=== PATIENT | male | born 1970 | race Hispanic/Latino ===

== ENCOUNTER 2017-12-25 11:18 | Observation (INO) | payer OTHER, BC ==
[2017-12-25] MEDS ORDERED: Tdap Vaccine 0.5 ml Vial (10-64 yrs) IM ONE (12:44)
[2017-12-25] MEDS ORDERED: Lidocaine 2% Inj (20ml) IJ ONE (13:00)
[2017-12-25] MEDS ORDERED: Lidocaine 2% w Epi 1:100,000 Inj IJ ONE (13:02)
[2017-12-25] MEDS ORDERED: Amoxicillin-Clav 875-125 mg Tab PO STA (13:17)
[2017-12-25] MEDS ORDERED: Amoxicillin-Clav 875-125 mg Tab PO ONE (13:50)
--- NOTE | 2017-12-25 13:51 | RAD ---
PROCEDURE: Right Hand Radiographs. HISTORY: 3rd digit distal crush injury/ lac COMPARISON: None. FINDINGS: BONES: No acute fracture. JOINTS: Unremarkable. SOFT TISSUES: Focal soft tissue laceration along the volar aspect a 3rd digit at the level of the distal interphalangeal joint. OTHER FINDINGS: None. IMPRESSION: Distal 3rd digit soft tissue laceration without demonstrated fracture, dislocation or retained radiopaque foreign body.
[2017-12-25] MEDS ORDERED: Sodium Chloride 0.9% 1,000 ML IV STA (14:04)
[2017-12-25] MEDS ORDERED: Morphine 4 MG/ML VIAL IVP PRN (14:35)
--- NOTE | 2017-12-25 14:50 | ED PDOC ---
HPI: General Adult Time Seen by Provider: 12/25/17 12:34 Chief Complaint (Nursing): Abnormal Skin Integrity Chief Complaint (Provider): right hand injury History Per: Patient History/Exam Limitations: no limitations Onset/Duration Of Symptoms: Mins Have you had recent travel within the past 21 days to any of the following countries: [place], [place], [place] or [place]?: No Current Symptoms Are (Timing): Still Present Additional History Per: Patient Additional Complaint(s): 47yo male, with history of diabetes and taking insulin, presents to ED for evaluation of an injury to his dominant right middle finger. Patient states after the injury, a cable under significant tension also caused a strangulation injury to the distal finger. He also reports numbness to the radial side > ulnar side of the right 3rd distal finger and also reports loss of ROM to distal tip with pain along distal half of the finger. Patient is unsure when his last tetanus vaccination was. He denies any other injuries. Patient offers no other medical complaints. Past Medical History Reviewed: Historical Data, Nursing Documentation, Vital Signs Vital Signs: Last Vital Signs Temp 97.4 F L 12/25/17 22:42 Pulse 61 12/25/17 22:42 Resp 18 12/25/17 22:42 BP 126/80 12/25/17 22:42 Pulse Ox 98 12/25/17 22:42 - Medical History PMH: Diabetes - Surgical History Other surgeries: foot surgery - Family History Family History: States: No Known Family Hx - Home Medications Home Medications: Ambulatory Orders Medication Instructions Recorded Insulin Aspart, Recombinant 8 unit SC AC 12/25/17 [Novolog] Insulin Glargine, Recombina 20 unit SC HS 12/25/17 [Lantus] - Allergies Allergies/Adverse Reactions: Allergies Allergy/AdvReac Type Severity Reaction Status Date / Time No Known Allergies Allergy Verified 12/25/17 11:51 Review of Systems ROS Statement: Except As Marked, All Systems Reviewed And Found Negative Musculoskeletal: Positive for: Hand Pain (injury to right 3rd digit) Neurological: Positive for: Numbness (numbness to radial side of distal right 3rd digit) Physical Exam - Reviewed Nursing Documentation Reviewed: Yes Vital Signs Reviewed: Yes - Physical Exam Appears: Positive for: Non-toxic, No Acute Distress Extremity: Positive for: Capillary Refill (< 2 seconds), Other (crush and laceration injury to right distal DIP, deep linear laceration with edema to distal pulp of right 3rd digit.) Neurologic/Psych: Positive for: Alert, Oriented, Motor/Sensory Deficits (loss of sensation to radial side of distal right 3rd digit.) - Laboratory Results Result Diagrams: 12/25/17 14:35 12/25/17 14:35 - ECG O2 Sat by Pulse Oximetry: 99 (RA) Pulse Ox Interpretation: Normal Medical Decision Making Medical Decision Making: Impression: Hand injury Plan: -- XR Right hand -- Motrin 400 mg PO -- Adacel 0.5ml IM Time: 1349 XR Right hand FINDINGS: BONES: No acute fracture. JOINTS: Unremarkable. SOFT TISSUES: Focal soft tissue laceration along the volar aspect a 3rd digit at the level of the distal interphalangeal joint. OTHER FINDINGS: None. IMPRESSION: Distal 3rd digit soft tissue laceration without demonstrated fracture, dislocation or retained radiopaque foreign body. Given numbness and loss of ROM, Dr. Estrella who was in ED consulted. Dr. Estrella recommends operative repair for optimal outcome. Risks and benefits of surgery explained to patient by Dr. Estrella and patient is agreeable with plan for admission. Patient to be admitted under Dr. Ching to [facility]. Pre-op labs ordered. Patient has been NPO since 1300. Scribe Attestation: Documented by Karen Wilks acting as a scribe for Dillon Eldridge DO Provider Attestation: All medical record entries made by the Scribe were at my direction and personally dictated by me. I have reviewed the chart and agree that the record accurately reflects my personal performance of the history, physical exam, medical decision making, and the department course for this patient. I have also personally directed, reviewed, and agree with the discharge instructions and disposition. Disposition - Clinical Impression Clinical Impression: Laceration of finger, complicated, Nerve injury - Patient ED Disposition Is Patient to be Admitted: Yes - Disposition Disposition Time: 13:45 Condition: STABLE - Pt Status Changed To: Hospital Disposition Of: Observation - POA Present On Arrival: Falls Or Trauma
[2017-12-25 14:56] LABS: BASO # 0.1 K/uL (0.0-0.2); EOS # 0.1 K/uL (0.0-0.7); EOS % 1.9 % (0.0-4.0); HEMOGLOBIN 14.4 g/dL (12.0-18.0); LYMPH # 2.2 K/uL (1.0-4.3); LYMPH % 30.4 % (20.0-40.0); MEAN CORPUSCULAR HEMOGLOBIN 29.8 pg (27.0-31.0); MEAN CORPUSCULAR HGB CONC 34.6 g/dL (33.0-37.0); MEAN PLATELET VOLUME 8.7 fl (7.2-11.7); MONO # 0.4 K/uL (0.0-0.8); NEUT # 4.5 K/uL (1.8-7.0); NEUT % 61.7 % (50.0-75.0); NRBC % 0.1 % (0.0-0.0); RBC 4.85 Mil/uL (4.40-5.90); RED CELL DISTRIBUTION WIDTH 12.9 % (11.5-14.5); WHITE BLOOD COUNT 7.3 K/uL (4.8-10.8)
[2017-12-25 14:58] LABS: BLOOD UREA NITROGEN 15 mg/dl (9-20); CALCIUM 9.5 mg/dL (8.4-10.2); GFR AFRICAN-AMERICAN > 60; GFR NON-AFRICAN AMERICAN > 60
[2017-12-25] MEDS ORDERED: Dextrose 5%/0.45% NS 1,000 ML IV SCH (15:00)
[2017-12-25 15:01] LABS: PARTIAL THROMBOPLASTIN TIME 34.1 Seconds (25.6-37.1); PROTHROMBIN TIME 11.6 Seconds (9.8-13.1)
[2017-12-25] MEDS ORDERED: Dextrose 50% SYRINGE Inj (50 ml) IVP ONE (16:51)
[2017-12-25] MEDS ORDERED: Dextrose 50% SYRINGE Inj (50 ml) ONE (16:52)
[2017-12-25] MEDS ORDERED: Insulin Regular 100 units/ml SC SCH (17:00)
--- NOTE | 2017-12-25 17:35 | CP.PCM.HP ---
History of Present Illness - History of Present Illness History of Present Illness: CC: Right 3rd digit injury This is a 47 year old male with a past medical history of diabetes mellitus controlled with insulin, who presents to the ED with the complaint of right 3rd digit pain and numbness/tingling after traumatic accident occurred. The patient stated that the injury occurred with a cable under tension. Upon arrival to the ED, the patient was seen by plastic surgeon Dr. Estrella who is concerned for nerve damage and tendon damage to the digit. The injury is located on the ventral side of the PIP joint of the 3rd digit. The patient denies any medical problems other than chest pain, n/v/d, headache, sob. The patient is to go for surgery tonight. Present on Admission - Present on Admission Any Indicators Present on Admission: No Review of Systems - Review of Systems Review of Systems: A 12 point review of systems was conducted and found to be negative other than what was mentioned in the HPI. Past Patient History - Infectious Disease Hx of Infectious Diseases: None - Past Medical History & Family History Past Medical History?: Yes Pertinent Family History: Father has DM and had a heart attack at age of 78 - Past Social History Smoking Status: Never Smoked - CARDIAC Hx Cardiac Disorders: No - PULMONARY Hx Respiratory Disorders: No - NEUROLOGICAL Hx Neurological Disorder: No - HEENT Hx HEENT Problems: No - RENAL Hx Chronic Kidney Disease: No - ENDOCRINE/METABOLIC Hx Diabetes Mellitus Type 2: Yes - HEMATOLOGICAL/ONCOLOGICAL Hx Blood Disorders: No - INTEGUMENTARY Hx Dermatological Problems: No - MUSCULOSKELETAL/RHEUMATOLOGICAL Hx Musculoskeletal Disorders: No - GASTROINTESTINAL Hx Gastrointestinal Disorders: No - GENITOURINARY/GYNECOLOGICAL Hx Genitourinary Disorders: No - PSYCHIATRIC Hx Psychophysiologic Disorder: No Hx Substance Use: No - SURGICAL HISTORY Hx Surgeries: No - ANESTHESIA Hx Anesthesia: Yes Hx Anesthesia Reactions: No Hx Malignant Hyperthermia: No Meds Allergies/Adverse Reactions: Allergies Allergy/AdvReac Type Severity Reaction Status Date / Time No Known Allergies Allergy Verified 12/25/17 11:51 Physical Exam - Constitutional Appears: Well, Non-toxic - Head Exam Head Exam: ATRAUMATIC, NORMAL INSPECTION, NORMOCEPHALIC - Eye Exam Eye Exam: EOMI, Normal appearance, PERRL - Respiratory Exam Respiratory Exam: Clear to Auscultation Bilateral, NORMAL BREATHING PATTERN - Cardiovascular Exam Cardiovascular Exam: REGULAR RHYTHM, +S1, +S2 - GI/Abdominal Exam GI & Abdominal Exam: Normal Bowel Sounds, Soft. absent: Tenderness - Extremities Exam Extremities exam: Negative for: calf tenderness, normal capillary refill, pedal edema Additional comments: Tenderness and pain to right hand 3rd digit. Laceration to PIP. - Neurological Exam Neurological exam: Alert, CN II-XII Intact, Normal Gait, Oriented x3, Reflexes Normal - Psychiatric Exam Psychiatric exam: Normal Affect, Normal Mood Results - Vital Signs Recent Vital Signs: Last Vital Signs Temp 97.5 F L 12/25/17 11:51 Pulse 80 12/25/17 11:51 Resp 18 12/25/17 11:51 BP 164/84 H 12/25/17 11:51 Pulse Ox 99 12/25/17 15:10 - Labs Result Diagrams: 12/25/17 14:35 12/25/17 14:35 Labs: Laboratory Results - last 24 hr 12/25/17 12/25/17 12/25/17 14:35 14:35 14:35 WBC 7.3 RBC 4.85 Hgb 14.4 Hct 41.7 MCV 86.0 MCH 29.8 MCHC 34.6 RDW 12.9 Plt Count 222 MPV 8.7 Neut % (Auto) 61.7 Lymph % (Auto) 30.4 Sebastian % (Auto) 5.0 Eos % (Auto) 1.9 Baso % (Auto) 1.0 Neut # (Auto) 4.5 Lymph # (Auto) 2.2 Sebastian # (Auto) 0.4 Eos # (Auto) 0.1 Baso # (Auto) 0.1 PT 11.6 INR 1.0 APTT 34.1 Sodium 141 Potassium 4.5 Chloride 100 Carbon Dioxide 28 Anion Gap 18 BUN 15 Creatinine 0.8 Est GFR ( Amer) > 60 Est GFR (Non-Af Amer) > 60 POC Glucose (mg/dL) Random Glucose 101 Calcium 9.5 12/25/17 12/25/17 14:49 16:50 WBC RBC Hgb Hct MCV MCH MCHC RDW Plt Count MPV Neut % (Auto) Lymph % (Auto) Sebastian % (Auto) Eos % (Auto) Baso % (Auto) Neut # (Auto) Lymph # (Auto) Sebastian # (Auto) Eos # (Auto) Baso # (Auto) PT INR APTT Sodium Potassium Chloride Carbon Dioxide Anion Gap BUN Creatinine Est GFR ( Amer) Est GFR (Non-Af Amer) POC Glucose (mg/dL) 83 62 L Random Glucose Calcium Assessment & Plan - Assessment and Plan (Free Text) Plan: ASSESSMENT/PLAN 1) Right hand 3rd digit traumatic injury, likely with nerve/tendon damage - med/surg observation - Consultation with Dr. Estrella, plastic surgery, appreciated - NPO status - IV fluids - pain management with morphine - For OR tonight and possible discharge later tonight. 2) DVT prophylaxis - SCDs
[2017-12-25] MEDS ORDERED: Lidocaine 2% Jelly (5 ml) TOP ONE (18:44)
[2017-12-25] MEDS ORDERED: Lidocaine 1% 5ml Abboject IV ONE (18:44)
[2017-12-25] MEDS ORDERED: Propofol 10 mg/ml Inj (20 ML) ONE ×2 (18:44→19:13)
[2017-12-25] MEDS ORDERED: Midazolam 2 MG/2 ML VIAL ONE (18:44)
[2017-12-25] MEDS ORDERED: Bupivacaine 0.5% Inj(30mL) ONE (18:57)
[2017-12-25] MEDS ORDERED: Lactated Ringer's 1,000 ML IV ONE (19:43)
[2017-12-25] MEDS ORDERED: Lidocaine 1% (10 ml) Inj IV ONE (20:11)
[2017-12-25] MEDS ORDERED: Bupivacaine 0.5% 50 ML IJ ONE (20:11)
--- NOTE | 2017-12-25 20:54 | PCM.SURG1 ---
Surgeon's Initial Post Op Note - Surgeon's Notes Surgeon: Dr. Estrella [employer] Black Trainer: Dr. Villasenor PGY2 Type of Anesthesia: General LMA Pre-Operative Diagnosis: Right middle finger acute ulnar nerve damage Operative Findings: See operative dictation Post-Operative Diagnosis: Right ulnar nerve damage Operation Performed: Right digital exploration with ulnar nerve exploration and repair Specimen/Specimens Removed: none Estimated Blood Loss: EBL {In ML}: 0 Drains Used: No Drains Post-Op Condition: Good Date of Surgery/Procedure: 12/25/17 Time of Surgery/Procedure: 20:54
[2017-12-25] MEDS ORDERED: Oxycodone/Acetaminophen 5/325 mg Tab PO PRN (20:55)
[2017-12-25] MEDS ORDERED: Lactated Ringer's 1,000 ML IV SCH (21:00)
--- NOTE | 2017-12-25 21:31 | CP.PCM.DIS ---
Provider - Provider Date of Admission: 12/25/17 14:12 Attending physician: Khadar Ching DO Primary care physician: Khadar Ching MD Consults: Dr Estrella Plastic Surgeon Time Spent in preparation of Discharge (in minutes): 25 Diagnosis - Discharge Diagnosis (1) Injury of right ulnar nerve Status: Acute (2) Injury of right ulnar nerve at hand level Status: Acute Hospital Course - Lab Results Lab Results: Most Recent Lab Values WBC 7.3 K/uL (4.8-10.8) 12/25/17 14:35 RBC 4.85 Mil/uL (4.40-5.90) 12/25/17 14:35 Hgb 14.4 g/dL (12.0-18.0) 12/25/17 14:35 Hct 41.7 % (35.0-51.0) 12/25/17 14:35 MCV 86.0 fl (80.0-94.0) 12/25/17 14:35 MCH 29.8 pg (27.0-31.0) 12/25/17 14:35 MCHC 34.6 g/dL (33.0-37.0) 12/25/17 14:35 RDW 12.9 % (11.5-14.5) 12/25/17 14:35 Plt Count 222 K/uL (130-400) 12/25/17 14:35 MPV 8.7 fl (7.2-11.7) 12/25/17 14:35 Neut % (Auto) 61.7 % (50.0-75.0) 12/25/17 14:35 Lymph % (Auto) 30.4 % (20.0-40.0) 12/25/17 14:35 [place] % (Auto) 5.0 % (0.0-10.0) 12/25/17 14:35 Eos % (Auto) 1.9 % (0.0-4.0) 12/25/17 14:35 Baso % (Auto) 1.0 % (0.0-2.0) 12/25/17 14:35 Neut # (Auto) 4.5 K/uL (1.8-7.0) 12/25/17 14:35 Lymph # (Auto) 2.2 K/uL (1.0-4.3) 12/25/17 14:35 [place] # (Auto) 0.4 K/uL (0.0-0.8) 12/25/17 14:35 Eos # (Auto) 0.1 K/uL (0.0-0.7) 12/25/17 14:35 Baso # (Auto) 0.1 K/uL (0.0-0.2) 12/25/17 14:35 PT 11.6 Seconds (9.8-13.1) 12/25/17 14:35 INR 1.0 (0.9-1.2) 12/25/17 14:35 APTT 34.1 Seconds (25.6-37.1) 12/25/17 14:35 Sodium 141 mmol/l (132-148) 12/25/17 14:35 Potassium 4.5 MMOL/L (3.6-5.0) 12/25/17 14:35 Chloride 100 mmol/L (98-107) 12/25/17 14:35 Carbon Dioxide 28 mmol/L (22-30) 12/25/17 14:35 Anion Gap 18 (10-20) 12/25/17 14:35 BUN 15 mg/dl (9-20) 12/25/17 14:35 Creatinine 0.8 mg/dl (0.8-1.5) 12/25/17 14:35 Est GFR ( Amer) > 60 12/25/17 14:35 Est GFR (Non-Af Amer) > 60 12/25/17 14:35 POC Glucose (mg/dL) 149 mg/dL (65-110) H 12/25/17 20:53 Random Glucose 101 mg/dL (75-110) 12/25/17 14:35 Calcium 9.5 mg/dL (8.4-10.2) 12/25/17 14:35 - Hospital Course Hospital Course: Patient came with Traumatic injuryto right middle finger, ventral side of PIP Surgeon: Dr Estrella Dx: Right middle finger with acute ulnar nerve damage Procedure: Right digital exploration with ulnar nerve exploration and repair by Dr Estrella Discharge to home Medication on discharge: Augmentin 500/125mg po Q12 for 10days Tramadol 50mg I po Q4H # 20Tabs Follow up with Dr Estrella on Sunday12/28/17 at his office Yair Storey MD - Date & Time of H&P Date of H&P: 12/25/17 Time of H&P: 17:23 Discharge Exam - Head Exam Head Exam: ATRAUMATIC, NORMAL INSPECTION, NORMOCEPHALIC Discharge Plan - Follow Up Plan Condition: STABLE Disposition: HOME/ ROUTINE Patient education suggested?: Yes Additional Instructions: Prescriptions: Augmentin 500/125mg Tabs 1 PO Q12H for 10days Tramadol 50mg tabs 1po Q4H PRN pain [address] up with Dr Estrella on Sunday12/28/17 at his office
[2017-12-25 21:56] VITALS: RESP 18
[2017-12-25 22:44] VITALS: BP 126/80; PULSE 61; TEMP 97.4
[2017-12-30 12:31] VITALS: O2SAT 99
--- NOTE | 2018-01-03 16:41 | CON ---
DATE: 12/25/2017 EMERGENCY ROOM CONSULTATION ER consultation is as follows. SURGEON: Rupesh Estrella MD HISTORY OF PRESENT ILLNESS: This is a 47-year-old right-hand dominant male, who presented to Emergency Room after he tripped and fell when cable was around his right middle finger and strangulated his finger for 3-10 minutes. He presented to the [facility] with a laceration on the volar aspect of his right middle finger. He had paresthesias on the tip of the finger. The ER staff consulted me for possible nerve injury. Thus, I came in to evaluate and treat the patient. PHYSICAL EXAMINATION: On physical exam, on the patient's right middle finger at the DIP joint, there was a 3-cm laceration that was deep. The patient was able to flex the DIP joint, but it was slightly limited. He was able to flex the PIP joint indicating grossly intact flexor digitorum superficialis tendons and grossly intact flexor digitorum profundus tendon. He is able to extend finger normally indicating intact extensor tendons. The bones were nontender. He had good capillary refill to the fingertips; however, he had significant paresthesias on the volar aspect of the right middle finger worse on the ulnar side than the radial side and is with a pin on the ulnar aspect of the volar tip, he did not feel any sensation. There was a positive Tinel sign traveling distally upon tapping the ulnar digital nerve. The radial digital nerve, he did feel to pinprick, but he did have paresthesias on the tip of the side of the finger as well. I explained to him he would benefit from emergent exploration in the operating room and possible repair of the digital nerves and flexor digitorum profundus tendon. I warned the patient that since this is also strangulation type injury there could be neuropraxia and he could have permanent paresthesias or they may take many months for them to come back. I told him if there is a significant laceration to the nerve, I would repair it and he will need to be splinted and immobilized followed by extensive hand therapy and he is at risk for scar contracture need for prolonged therapy, need for more surgeries and lack of return of sensation and stiffness. He understood this and wished to proceed. The patient he has got a past medical history of diabetes and he has some other old hand injuries to other digits, so he was placed on emergent add-on schedule for the operating room and I will now dictate a separate operative report. Rupesh Estrella MD
--- NOTE | 2018-01-03 21:58 | OP ---
PROCEDURE DATE: 12/25/2017 PREOPERATIVE DIAGNOSES: 1. Right middle finger ulnar digital nerve laceration. 2. Possible right middle finger radial digital nerve laceration. 3. A 3 cm right middle finger open wound laceration. 4. Possible right middle finger flexor digitorum profundus tendon laceration. POSTOPERATIVE DIAGNOSES: 1. Right middle finger ulnar digital nerve laceration. 2. Possible right middle finger radial digital nerve laceration. 3. A 3 cm right middle finger open wound laceration. 4. Possible right middle finger flexor digitorum profundus tendon laceration. PROCEDURE PERFORMED: 1. Exploration of flexor tendon and neurolysis of right third radial digital nerve. 2. Repair of right middle finger ulnar digital nerve partial nerve laceration. 3. Complex exposure of 3 cm right middle finger laceration. SURGEON: Rupesh Estrella MD FOUND[employer] CEO & PRESIDENT SURGEON: Mj Villasenor MD ANESTHESIOLOGIST: Efren Jeffrey MD TYPE OF ANESTHESIA: General anesthesia with an LMA as well as regional: 1. Right middle finger radial digital nerve block. 2. Right middle finger ulnar digital nerve block. FINDINGS: As above. SPECIMENS: None. DRAINS: None. ESTIMATED BLOOD LOSS: Minimal. COMPLICATIONS: None. CONDITION: Stable. INDICATIONS FOR THE OPERATION: Please refer to my separately dictated ER consultation for history and physical. DESCRIPTION OF PROCEDURE: The patient was taken to the operating room, placed under general anesthesia and after perioperative antibiotics were given, SCDs were placed on bilateral lower extremities. The right upper extremity was prepped and draped in the usual clean and sterile manner and was then exsanguinated with an Esmarch bandages. After the arm was elevated, the tourniquet was inflated to 250 mmHg. Total tourniquet time for the case was 36 minutes. I started the operation by making the incision larger in a manner with #15 blade. We then raised the thick skin flap, irrigated the wound, and used 4-0 nylon tacking sutures. I opened up the A5 drea and explored the flexor digitorum profundus tendon after making the incision larger with a scissor for full exploration. The FDP tendon was completely intact, then with the microdissecting instruments, I dissected out through radial and ulnar digital nerves. The radial digital nerve was completely intact as was the artery; however, the ulnar digital nerve has trifurcation, has partially lacerated, and was thus repaired with 8-0 nylon epineural repair. After doing this, the wound was irrigated. The skin edges were debrided with scissor technique undermined to take the tension off the wound and a 3 cm wound was closed with 4-0 chromic suture in interrupted fashion. Xeroform, dry sterile dressing, Yasmeen wrap, and then a volar splint with the right wrist neutral and the MCP is flexed to 60 degrees and was placed and hardened before the patient was allowed to move. The shoulder sling was placed, he awoke from anesthesia and transferred to recovery room in stable condition. Rupesh Estrella MD
== END 2017-12-25 23:13 | disposition home or self-care (01) ==
LOC: H.ER 11:18 → H.ERHOLD 14:12 → UNDODISOB 17:25 → H.MEDSURG1 22:28
PROVIDERS: ADMIT Internal Medicine; ATTEND Internal Medicine
DX: S61.212A Laceration without foreign body of right middle finger without damage to nail, initial encounter (principal); S64.01XA Injury of ulnar nerve at wrist and hand level of right arm, initial encounter; Y93.9 Activity, unspecified; Y92.9 Unspecified place or not applicable; Y99.9 Unspecified external cause status; X58.XXXA Exposure to other specified factors, initial encounter; Z23 Encounter for immunization; E11.9 Type 2 diabetes mellitus without complications; Z79.4 Long term (current) use of insulin; W01.0XXA Fall on same level from slipping, tripping and stumbling without subsequent striking against object, initial encounter
CPT/HCPCS: 64831; 73130; 80048; 82948; 85025; 85610; 85730; 90471; 90715; 99283; G0378; J0690; J2250; J2704; J2765; J3010; J7030; J7042; J7120